=== PATIENT | female | born 1980 | race Caucasian/White ===

== ENCOUNTER 2018-10-27 18:11 | Emergency (ER) | payer MEDICAID, OTHER ==
[~2018-10-27] VITALS: Ht 165.1 cm; Wt 94.1 kg
[2018-10-27 18:23] VITALS: BP 126/67; PULSE 78; RESP 20; Ht 165.1 cm; Wt 94.1 kg
[2018-10-27] MEDS ORDERED: KETOROLAC 30 MG INJ IM STA (18:45)
[2018-10-27] MEDS ORDERED: DEXAMETHASONE 10 MG/ML 1 ML INJ IM ONE (19:00)
[2018-10-27] MEDS ORDERED: METHOCARBAMOL 750 MG TAB PO ONE (19:00)
[2018-10-27] MEDS ORDERED: IBUP-1542 PO (20:29)
[2018-10-27] MEDS ORDERED: METH750T93 PO (20:29)
--- NOTE | 2018-10-28 02:46 | ERD ---
ER Documentation Chief Complaint Chief Complaint c/o back pain radiating to legs HPI 38-year-old female presents for back pain times 1 day. The pain is located in the mid back area noted to be 8 out of 10. Patient describes the pain as sharp. She states that walking makes the pain worse. She has had prior similar symptoms however she states that the spontaneous go away. She did not try any medication at home. She denies fevers or chills. She denies chest pain, shortness of breath, abdominal pain, nausea, vomiting. Denies history of cancer, no history of spinal procedure, no history of recent infection. ROS All systems reviewed and are negative except as per history of present illness. Medications Home Meds Active Scripts Methocarbamol* (Robaxin*) 750 Mg Tablet, 750 MG PO TID PRN for PAIN, #30 TAB Prov:SORAIDA GAVIRIA DO 10/27/18 Ibuprofen* (Motrin*) 600 Mg Tab, 600 MG PO Q6H PRN for PAIN AND OR ELEVATED TEMP, #30 TAB Prov:SORAIDA GAVIRIA DO 10/27/18 Allergies Allergies: Coded Allergies: No Known Drug Allergies (Verified Allergy, Unknown, 10/27/18) PMhx/Soc Medical and Surgical Hx: pt denies Medical Hx, pt denies Surgical Hx Hx Alcohol Use: No Hx Substance Use: No Hx Tobacco Use: No Smoking Status: Never smoker Physical Exam Vitals Vital Signs Date Temp Pulse Resp B/P (MAP) Pulse Ox O2 O2 Flow FiO2 Time Delivery Rate 10/27/18 99.2 78 20 126/67 98 18:23 (86) Physical Exam Const: No acute distress Resp: Clear to auscultation bilaterally Cardio: Regular rate and rhythm, no murmurs Abd: Soft, non tender, non distended. Normal bowel sounds Skin: No petechiae or rashes Back: Mid thoracic paravertebral muscle tenderness to palpation, no midline tenderness. Ext: No cyanosis, or edema Neur: Awake and alert Psych: Normal Mood and Affect Results 24 hrs Laboratory Tests Test 10/27/18 18:55 POC Beta HCG, Qualitative NEGATIVE Current Medications Medications Dose Sig/Marguerite Start Time Status Last (Trade) Ordered Route PRN Stop Time Admin Dose Reason Admin Ketorolac 30 mg ONCE STAT 10/27/18 DC 10/27/18 Tromethamine IM 18:45 10/27/18 19:02 (Toradol) 18:46 10 mg ONCE ONCE 10/27/18 DC 10/27/18 Dexamethasone IM 19:00 10/27/18 19:02 (Decadron) 19:01 750 mg ONCE ONCE 10/27/18 DC 10/27/18 Methocarbamol PO 19:00 10/27/18 19:01 (Robaxin) 19:01 Procedures/MDM Medical Decision Making: Differential diagnosis includes but not limited to muscle strain, ligamentous sprain, epidural abscess, osteomyelitis, osteoarthritis, herniated disc, compression fracture, aortic aneurysm, kidney stone, pyelonephritis, pancreatitis. Patient appeared well on physical examination. Nontoxic appearing. Imaging: Thoracic x-ray showed Mild to moderate thoracic dextroscoliosis. No visualized fracture or dislocation. Lumbar x-ray showed moderate levoscoliosis, Mild lower lumbar spine facet hypertrophy, No fracture or dislocation. Patient likely has muscle strain ED course: Patient was given Toradol, Decadron, Robaxin. Symptoms improved with treatment. Prescription(s): Patient given prescription for Robaxin and Motrin. Patient advised to follow up with PCP in 1-2 days. Patient advised to return to ED for new or worsening symptoms. Patient stable on discharge from the ED. Disclaimer: Inadvertent spelling and grammatical errors are likely due to EHR/dictation software use and do not reflect on the overall quality of patient care. Also, please note that the electronic time recorded on this note does not necessarily reflect the actual time of the patient encounter. Departure Diagnosis: Primary Impression: Back pain Condition: Fair Patient Instructions: Back Pain (Acute Or Chronic) Referrals: [facility] YOU HAVE RECEIVED A MEDICAL SCREENING EXAM AND THE RESULTS INDICATE THAT YOU DO NOT HAVE A CONDITION THAT REQUIRES URGENT TREATMENT IN THE EMERGENCY DEPARTMENT. FURTHER EVALUATION AND TREATMENT OF YOUR CONDITION CAN WAIT UNTIL YOU ARE SEEN IN YOUR DOCTORS OFFICE WITHIN THE NEXT 1-2 DAYS. IT IS YOUR RESPONSIBILITY TO MAKE AN APPOINTMENT FOR FOLOW-UP CARE. IF YOU HAVE A PRIMARY DOCTOR --you should call your primary doctor and schedule an appointment IF YOU DO NOT HAVE A PRIMARY DOCTOR YOU CAN CALL OUR PHYSICIAN REFERRAL HOTLINE AT IF YOU CAN NOT AFFORD TO SEE A PHYSICIAN YOU CAN CHOSE FROM THE FOLLOWING [facility] [id number] [facility] [facility] [address] [facility] [facility] [address] [facility] [address] [facility] [address] [facility]. [facility] [address] Additional Instructions: Call your primary care doctor TOMORROW for an appointment during the next 1-2 days.See the doctor sooner or return here if your condition worsens before your appointment time. SORAIDA GAVIRIA DO Oct 28, 2018 02:46
== END 2018-10-27 21:08 | disposition home or self-care (01) ==
LOC: FTE 18:11
DX: M54.9 Dorsalgia, unspecified (principal)
CPT/HCPCS: 72072; 72100; 81025; 96372; J1100; J1885; Z7502; Z7610